=== PATIENT | female | born 1970 | race Two or more races ===

== ENCOUNTER 2020-08-07 01:52 | Emergency (ER) | payer SELFPAY ==
[~2020-08-07] VITALS: Ht 177.8 cm; Wt 108.9 kg
[2020-08-07 04:07] LABS: White Blood Cell 6.7 10^3/uL (4.4-10.8)
[2020-08-07 04:08] LABS: Basophils # (auto) 0 10 ^3/uL (0-0.2); Basophils % (auto) 0.4 % (0.0-2.0); Eosinophils # (auto) 0.1 10 ^3/uL (0-0.8); Eosinophils % (auto) 1.1 % (0.0-7.0); Hematocrit 35.4 % (36.0-46.0); Hemoglobin 11.8 g/dL (12.2-16.2); Lymphocytes # (auto) 1.8 10 ^3/uL (0.4-5.4); Mean Corpuscular Hemoglobin 28.6 pg (28.0-32.0); Mean Corpuscular Hgb Conc. 33.4 g/dL (32.0-36.0); Mean Corpuscular Volume 85.5 fL (80.0-100.0); Monocytes # (auto) 0.3 10 ^3/uL (0-1.3); Monocytes % (auto) 5.1 % (0.0-12.0); Neutrophils # (auto) 4.5 10 ^3/uL (1.6-8.6); Neutrophils % (auto) 66.4 % (37.0-80.0); Platelet Count (auto) 329 10^3/uL (140-450); Red Blood Cells 4.15 10^6/uL (4.0-5.20); Red Cell Distribution Width 14.5 % (11.8-14.3)
[2020-08-07 04:18] LABS: Chloride 112 mmol/L (98-107); Potassium 3.4 mmol/L (3.5-5.1); Sodium 143 mmol/L (136-145)
[2020-08-07 04:27] LABS: Alanine Aminotransferase 19 U/L (13-56); Albumin 2.9 g/dL (3.4-5.0); Alkaline Phosphatase 99 U/L (45-117); Anion Gap 7 (5-15); Aspartate Aminotransferase 17 U/L (15-37); BUN/Creatinine Ratio 18.8; Bilirubin, Total 0.2 mg/dL (0.2-1.0); Blood Alcohol < 3.0 mg/dL (0-5); Blood Urea Nitrogen 13 mg/dL (7-18); Calcium 7.3 mg/dL (8.5-10.1); Carbon Dioxide 24 mmol/L (21-32); GFR African American 117 mL/min; GFR Non-African American 97 mL/min; Glucose 97 mg/dL (74-106); Total Protein 7.1 g/dL (6.4-8.2)
[2020-08-07 08:16] VITALS: BP 105/70
[2020-08-07] MEDS ORDERED: SODIUM CHLORIDE 0.9% 1,000 ML IV ONE (08:45)
== END 2020-08-07 09:13 | disposition home or self-care (01) ==
LOC: EDBD 01:52 → ER 02:00
DX: G40.309 Generalized idiopathic epilepsy and epileptic syndromes, not intractable, without status epilepticus (principal)
CPT/HCPCS: 36415; 70450; 80053; 80320; 85025; 93005; 96360; 99285; J7030